=== PATIENT | male | born 1950 | race African-American/Black ===

== ENCOUNTER 2017-08-31 07:58 | Inpatient (IN) | payer MEDICARE ==
[~2017-08-31] VITALS: Ht 172.7 cm; Wt 62.3 kg
--- NOTE | ~2017-08-31 | HEMODYNAMI ---
PATIENT:MARK HAIRSTON MEDICAL RECORD: [id number] : 54 LOCATION:[address] [id number] ADMISSION DATE: 08/31/17 Generatedon:09/01/201711:05 Patient name: MARK HAIRSTON Patient #: [id number] SSN: : 1950 Date of study: 09/01/2017 Page: Of Hemodynamic Procedure Report Patient Data Patient Demographics Procedure consent was obtained First Name: MARK Gender: Male Last Name: YOVANNY : 1950 Middle Initial: RAY Age: 67 year(s) Patient #: [id number] Race: Black Additional ID: [id number] Contact details [address]: [address] [place] [address] 7 State: [place] City: [place] Zip code: [address] Admission Admission Data Admission Date: 08/31/2017 Admission Time: 9:46 Room #: D.2124 Lab Results Lab Result Date: 09/01/2017 Lab Result Time: 0:00 Biochemistry Name Units Result Min Max BUN mg/dl 18 --(---*)-- 7 18 Creatinine mg/dl 1.5 --(----)-* 0.6 1.3 CBC Name Units Result Min Max Hemoglobin g/dl 15.1 --(-*--)-- 13.5 17.5 Procedure Procedure Types Cath Procedure Diagnostic Procedure LHC LH w/Coronaries Miscellaneous Procedures Moderate Sedation up to 15 minutes Peripheral Cath Diagnostic Procedure Cath Peripheral Yqaxh-Rymqvgd-Muf-Off Procedure Description Procedure Date Procedure Date: 09/01/2017 Procedure Start Time: 10:46 Procedure End Time: 11:01 Procedure Staff Name Function Odilia Powell RT Scrub Paul Youngblood RN Mail Order Biller Ash Quiros MD Performing Physician Nathalia Hernandez RT Monitor Bonita Guerrier RN Nurse Procedure Data Cath Procedure Fluoroscopy Diagnostic fluoroscopy Total fluoroscopy Time: 2.1 time: 2.1 min min Diagnostic fluoroscopy Total fluoroscopy dose: 537 dose: 537 mGy mGy Contrast Material Contrast Material Type Amount (ml) Isovue 300 103 Entry Location Entry Primary Successful Side Size Upsize Upsize Entry Closure Succes sful Closure Location (Fr) 1 (Fr) 2 (Fr) Remarks Device Remarks Femoral Right 5 Fr Exoseal artery Estimated blood loss: 10 ml Diagnostic catheters Device Type Used For End Catheter Placement MULTIPACK Pigtail 5 Fr Procedure catheter MULTIPACK JL 4.0 5Fr Procedure catheter MULTIPACK 3DRC 5Fr Procedure catheter Procedure Complications No complications Procedure Medications Medication Administration Route Dosage Plavix P.O. 75 mg Lidocaine 2% added to field 20 Heparin Flush Bag added to field 2 bags (1000units/500ml NS) 0.9% NaCl I.V. 100 ml/hr Oxygen NC 2 l/min Fentanyl 50 mcg Versed I.V. 1 mg Versed I.V. 1 mg Fentanyl 50 mcg Hemodynamics Rest HGB: 15.1 (g/dl) Heart Rate: 80 (bpm) Pressure Samples Time Site Value (mmHg) Purpose Heart Use Rate(bpm) 10:51 AO 148/11(63) Snapshot 58 Snapshots Pre Cath Intra NCS Post Cath Vital Signs Time Heart Resp SPO2 etCO2 NIBP (mmHg) Rhythm Pain Sedation Rate (ipm) (%) (mmHg) Status Level (bpm) 10:39:52 67 17 99 176/122(158) NSR 0 (11) 10(A) , No pain 10:44:09 71 16 99 163/121(144) NSR 0 (11) 10(A) , No pain 10:48:22 61 20 95 26.9 161/103(124) NSR 0 (11) 9(A) , No pain 10:52:36 64 15 96 22.4 160/119(135) NSR 0 (11) 9(A) , No pain 10:56:50 78 14 99 0 147/103(126) NSR 0 (11) 10(A) , No pain 11:00:58 75 12 98 0 148/101(123) NSR 0 (11) 10(A) , No pain Medications Time Medication Route Dose Verified Delivered Reason Notes Effectiveness by by 10:32:50 Plavix P.O. 75 mg Ash [place] for Ishaan Guerrier RN antiplatelet therapy 10:32:58 Lidocaine 2% added 20ml Ash Aleman for local to vial Ishaan Quiros MD anesthetic field 10:33:08 Heparin Flush added 2 bags Ash Aleman used for Bag to Ishaan Quiros MD procedure (1000units/500ml field NS) 10:33:23 0.9% NaCl I.V. 100ml/hr Ash [place] used for Ishaan Guerrier RN procedure 10:33:30 Oxygen NC 2 l/min Ash [place] Per Ishaan Guerrier RN physician 10:45:41 Fentanyl 50 mcg [place] for sedation Ishaan Guerrier RN 10:45:50 Versed I.V. 1 mg Ash [place] for sedation Ishaan Guerrier RN 10:48:01 Versed I.V. 1 mg Ash [place] for sedation Ishaan Guerrier RN 10:48:07 Fentanyl 50 mcg [place] for sedation Ishaan Guerrier RN Procedure Log Time Note 10:24:13 Diagnostic Cath status Elective 10:24:15 Paul Youngblood RN sent for patient. Start room use. 10:24:17 Time tracking: Regular hours 10:24:23 Plan of Care:Hemodynamics will remain stable., Cardiac rhythm will remain stable., Comfort level will be maintained., Respiratory function will remain adequate., Patient/ family verbilizes understanding of procedure., Procedure tolerated without complication., Recovers from procedure without complications.. 10:24:51 Patient received from Med II to CCL 2 Alert and oriented. Tansferred to table in Supine position. 10:27:56 Warm blankets applied, and lindsay hugger turned on for patient comfort. 10:27:57 Correct patient and procedure confirmed by team. 10:27:59 Signed procedure consent form obtained from patient. 10:28:00 ECG and BP/O2 sat monitors applied to patient. 10:28:08 H&P Date Dictated: 08/31/2017 Within 30 days and on chart.. 10:28:10 Pre-procedure instructions explained to patient. 10:28:12 Family in patients room. 10:28:14 Patient NPO since Midnight. 10:32:50 Plavix 75 mg P.O. was administered by Bonita Guerrier RN; for antiplatelet therapy; 10:32:58 Lidocaine 2% 20ml vial added to field was administered by Ash Quiros MD; for local anesthetic; 10:33:08 Heparin Flush Bag (1000units/500ml NS) 2 bags added to field was administered by Ash Quiros MD; used for procedure; 10:33:23 0.9% NaCl 100ml/hr I.V. was administered by Bonita Guerrier RN; used for procedure; 10:33:30 Oxygen 2 l/min NC was administered by Bonita Guerrier RN; Per physician; 10:38:45 Vital chart was started 10:38:57 Is the patient allergic to Iodine/contrast media? No. 10:38:58 Is patient on blood thinner?Yes 10:39:01 ACC The patient was administered the following blood thiners within the last 24 hours: ACCPlavix 10:39:03 If diabetic: On Metformin? No 10:39:07 Snore? Yes 10:39:08 Sleep apnea? No 10:39:12 Airway obstruction? No ? 10:39:17 Baseline sample Acquired. 10:39:21 Rhythm: sinus rhythm 10:39:23 Full Disclosure recording started 10:39:39 IV patent on arrival in right wrist with 0.9% NaCl at [facility]. 10:40:18 Lab Result : Hemoglobin 15.1 g/dl 10:40:18 Lab Result : Creatinine 1.5 mg/dl 10:40:18 Lab Result : BUN 18 mg/dl 10:40:23 Lab results completed and on chart. 10:40:27 Right groin area was prepped with chlora-prep and draped in sterile fashion 10:40:28 Sharps counted by scrub and verified by R.N. 10:40:28 Alarms reviewed by R. N. 10:40:29 Physician paged 10:45:39 --------ALL STOP TIME OUT------ 10:45:39 Physician arrived 10:45:41 Final Timeout: patient, procedure, and site verified with staff and physician. All members of the team are in agreement. 10:45:41 Fentanyl 50 mcg was administered by Bonita Guerrier RN; for sedation; 10:45:43 Right groin site verified by team. 10:45:47 Physical assessment completed. ASA score P 2 - A patient with mild systemic disease as per Ash Quiros MD. 10:45:50 Versed 1 mg I.V. was administered by Bonita Guerrier RN; for sedation; 10:45:53 Sedation plan: IV Moderate Sedation Medication:Versed, Fentanyl 10:46:09 Procedure started. 10:46:17 Local anesthetic to right femoral artery with Lidocaine 2% by Ash Quiros MD.INITIAL ACCESS ONLY 10:46:27 A 5 Fr sheath was inserted into the Right Femoral artery 10:46:39 Use device set Femoral Dx 10:46:41 Bag Decanter (2002S) opened to sterile field. 10:46:41 ACIST Syringe (54132) opened to sterile field. 10:46:42 SHEATH 5FR [place] (RXH649) opened to sterile field. 10:46:42 Medline Cath Pack ([id number]) opened to sterile field. 10:46:43 DIAGNOSTIC WIRE .035 260cm J wire (739063) opened to sterile field. 10:46:44 ACIST Hand Control (23193) opened to sterile field. 10:46:45 DIAGNOSTIC Multipack 5Fr catheter set ([id number]) opened to sterile field. 10:46:45 ACIST Manifold (08032) opened to sterile field. 10:46:46 PERCUTANEOUS ENTRY 19GA needle opened to sterile field. 10:46:46 Tegaderm 4 x 4 (1626W) opened to sterile field. 10:46:47 EXOSEAL 5Fr (EX500) opened to sterile field. 10:46:47 MICROPUNCTURE 4FR OnShift ([id number]) opened to sterile field. 10:48:01 Versed 1 mg I.V. was administered by Bonita Guerrier RN; for sedation; 10:48:07 Fentanyl 50 mcg was administered by Bonita Guerrier RN; for sedation; 10:50:09 A MULTIPACK Pigtail 5 Fr catheter was advanced over the wire and used for Procedure. 10:50:10 LV angiography performed. 10:51:41 EF : 35 % 10:52:01 Abdominal Aortagram was performed. 10:52:05 Left leg runoff performed. 10:52:06 Right leg runoff performed. 10:53:11 Catheter removed. 10:53:33 A MULTIPACK JL 4.0 5Fr catheter was advanced over the wire and used for Procedure. 10:53:40 LCA angiography performed. 10:55:58 Catheter removed. 10:56:21 A MULTIPACK 3DRC 5Fr catheter was advanced over the wire and used for Procedure. 10:58:12 RCA angiography performed. 10:58:14 Catheter removed. 10:59:01 EXOSEAL 5Fr (EX500) opened to sterile field. 10:59:09 Sheath removed intact; hemostasis achieved with Exoseal to the Right Femoral artery. 10:59:11 Procedure ended.(Physican Out) 10:59:51 Fluoroscopy time 02.10 minutes. 10:59:57 Fluoroscopy dose: 537 mGy 10:59:57 Flurop Dose total: 537 11:00:01 Contrast amount:Isovue 300 103ml. 11:00:02 Sharps counted by scrub and verified by R.N. 11:00:04 Insertion/operative site no bleeding no hematoma. 11:00:10 Post-op/insertion site Right Femoral artery dressed using a 4 x 4 and Tegaderm. 11:00:15 Post right femoral artery:stable 11:00:18 Post Procedure Pulses reassessed and unchanged 11:00:23 Post-procedure physical assessment completed. ASA score P 3 - A patient with severe systemic disease as per Ash Quiros MD. 11:00:45 Post procedure rhythm: sinus rhythm 11:00:48 Estimated blood loss: 10 ml 11:00:51 Post procedure instruction explained to patient.Patient verbalizes understanding. 11:00:53 Patient needs reinforcement of post procedure teaching. 11:01:05 Procedure type changed to Cath procedure, Diagnostic procedure, LHC, LHC w/Coronaries, Miscellaneous Procedures, Moderate Sedation up to 15 minutes, Peripheral Cath Diagnostic Procedure, Cath Peripheral, Qyyia-Rmpwkts-Tzz-Off 11:01:07 Procedure and supply charges have been captured, reviewed, submitted and are correct. 11:01:12 Procedure Complication : No complications 11:01:14 Vital chart was stopped 11:01:15 See physician's report for complete and final results. 11:01:18 Report given to [facility]. 11:01:24 Patient transfered to [facility] with Bed. 11:01:26 Full Disclosure recording stopped 11::26 Procedure ended. 11:01:30 End room use (Document Last) Device Usage Item Name Manufacture Quantity Catalog Hospital Part Current Minimal Lot# / Number Charge Number Stock Stock Serial# Code ACIST Syringe Acist 1 42979 748285 997462 288607 20 (74152) Kids Calendar Bag Decanter Microtek 1 539695 80607 347575 5 () Medical Inc. Medline Cath Cardinal 1 [id number] 433140 34785 799785 5 Pack Health ([id number]) SHEATH 5FR Terumo 1 [id number] 243312 757853 747441 40 [place] (JPX147) DIAGNOSTIC [place] 1 272709 014364 510983 773628 30 WIRE .035 260cm J wire (226404) ACIST Hand Acist 1 95971 229616 208635 909631 5 Control Medical (68249) Systems Inc ACIST Acist 1 50143 294024 022580 986620 5 Manifold Medical (02811) Systems Inc DIAGNOSTIC Cardinal 1 [id number] 621497 58242 962963 30 Multipack 5Fr Health catheter set ([id number]) Tegaderm 4 x 3M 1 1626W 430209 512518 367455 5 4 (1626W) PERCUTANEOUS Stockleap 1 V68101 928734 413107 5 ENTRY 19GA needle MICROPUNCTURE OnShift Medical 1 [id number] 634655 616834 282376 5 4FR Cook ([id number]) EXOSEAL 5Fr Cardinal 2 EX500 807113 661275 606289 10 (EX500) Health MULTIPACK Cardinal 1 687653 5 Pigtail 5 Fr Health catheter MULTIPACK JL Cardinal 1 799861 5 4.0 5Fr Health catheter MULTIPACK Cardinal 1 233310 5 3DRC 5Fr Health catheter Signature Audit [place] Stage Time Signature Unsigned Intra-Procedure 09/01/2017 Nathalia Hernandez 11:01:56 AM RT(R) Signatures Monitor : Nathalia Hernandez Signature : RT Date : Time : [facility] [address] [place], [place] [address]
[2017-08-31 08:18] LABS: BASOPHILS 0.4 % (0-2); EOSINOPHILS 1.9 % (0-7); HEMATOCRIT 41.5 % (42.0-54.0); HEMOGLOBIN 14.5 g/dL (13.5-17.5); LYMPHOCYTES 24.6 % (15-50); MCH 30.2 pg (26.0-34.0); MCHC 34.9 g/dL (31.0-37.0); MCV 86.5 fL (80.0-100.0); MEAN PLATELET VOLUME 10.1 fL (7.4-10.4); MONOCYTES 5.9 % (2-11); NEUTROPHILS 67.2 % (40-80); PLATELET COUNT 177 10x3/uL (130-400); RDW 13.8 % (11.5-14.5); WBC 5.4 10x3/uL (4.8-10.8)
[2017-08-31 08:32] LABS: ALBUMIN 3.3 g/dL (3.4-5.0); ALKALINE PHOSPHATASE 72 U/L (46-116); ALT (SGPT) 13 U/L (10-68); BILIRUBIN - TOTAL 0.55 mg/dL (0.2-1.3); CALC OSMOLALITY 281 mosm/kg (275-300); CALCIUM 8.7 mg/dL (8.5-10.1); CARBON DIOXIDE 25.6 mmol/L (21.0-32.0); CHLORIDE - SERUM 108 mmol/L (98-107); CREATININE - SERUM 1.2 mg/dL (0.6-1.3); GLUCOSE 103 mg/dL (74-106); POTASSIUM - SERUM 3.9 mmol/L (3.5-5.1); PROTEIN - SERUM 7.3 g/dL (6.4-8.2); SODIUM 141 mmol/L (136-145); UREA NITROGEN 16 mg/dL (7-18); eGFR NON AFRICAN AMERICAN 64 mL/min (90-120)
[2017-08-31 08:59] LABS: CHOL - HDL RATIO 2.9 ratio (2.3-4.9); CHOLESTEROL, TOTAL 152 mg/dL (0-200); CKMB 2.8 U/L (0.0-3.6); CREATINE KINASE 84 UL (21-232); HDL CHOLESTEROL 52 mg/dL (32-96); LDL CHOLESTEROL 92 mg/dL (0-100); LDL-HDL RATIO 1.8 ratio (1.5-3.5); TRIGLYCERIDE 41 mg/dL (30-200)
[2017-08-31 09:05] LABS: TROPONIN-I 0.118 ng/mL (0.000-0.060)
--- NOTE | 2017-08-31 11:33 | NUR ---
RECIVED FROM ER PER WC, TO ROOM 2124. ADMIT ASSESSMENT PER RN
--- NOTE | 2017-08-31 12:15 | CN ---
PATIENT NAME:MARK HAIRSTON MEDICAL RECORD: [id number] : 54 LOCATION:. D.2124 ADMIT DATE: 08/31/17 ACCOUNT: [id number] CONSULTING PHYSICIAN: SYDNIE JARAMILLO MD REFERRING PHYSICIAN: FORREST TRAORE MD DATE OF CONSULTATION: 08/31/2017 CARDIOLOGY CONSULTATION DATE OF SERVICE: 08/31/2017 DIAGNOSES: 1. Non-Q-wave myocardial infarction, elevated troponin. 2. Shortness of breath, dyspnea on exertion. 3. Hypertension. HISTORY OF PRESENT ILLNESS: This is a gentleman with a past history of hypertension, on metoprolol, who was short of breath, presented to the Emergency Room with this. He actually states that he just came to the hospital for a checkup. His troponin is positive. His EKG has left ventricular hypertrophy with some lateral changes as well. He denies any overt chest pain or chest discomfort. Denies any cardiac history. PHYSICAL EXAMINATION: GENERAL APPEARANCE: Well-nourished, well-developed, appears stated age. Level of distress, comfortable. PSYCHIATRIC: Mental status, alert, normal affect. Orientation, oriented to time, place and person. EYES: Lids and conjunctiva, noninjected. No discharge, no pallor. ENT: Lips, teeth, gums, normal dentition. Oropharynx, no cyanosis, no pallor. NECK: Carotid arteries, bilateral normal upstroke, no bruits, no thrills. JUGULAR VEINS: No jugular venous pressure or distention. CERVICAL LYMPH NODES: Nontender, nonenlarged. THYROID: Not enlarged. Nontender. No nodules. LUNGS: Respiratory effort, unlabored. CHEST: Normal curvature. No thoracic deformity. No chest wall tenderness. Percussion, resonant. Auscultation, clear. No wheezes, no rales, no rhonchi. CARDIOVASCULAR: Precordial exam, nondisplaced. No heaves or pericardial thrills. Rate and rhythm, regular. Heart sounds, normal S1, normal S2. No S3, no gallop, no rub. Systolic murmur, not heard. Diastolic murmur, not heard. EXTREMITIES: No cyanosis, no edema. Peripheral pulses, full and equal in all extremities, except as noted. No bruits appreciated. ABDOMEN: Soft, nondistended. Normal aorta. No bruit. Nontender. No masses. Liver, nontender, no hepatomegaly. Spleen, nontender, no splenomegaly. MUSCULOSKELETAL: No joint tenderness. No joint swelling. No erythema. NEUROLOGICAL: Normal gait, normal strength, normal tone. SKIN: Warm and dry. REVIEW OF SYSTEMS: The patient reports easy bruising but reports no swollen glands. The patient reports no fever, no night sweats, no significant weight gain, no significant weight loss. No significant exercise tolerance. The patient reports no dry eyes, no irritation, no vision change. Patient reports no difficulty hearing and no ear pain. Patient reports no frequent nose bleeds or nose and sinus problems. Patient reports on arm pain on exertion. No shortness of breath while lying down. No history of heart murmur. Patient CONSULT REPORT [id number] MARK HAIRSTON reports no cough, no wheezing or coughing up blood. Patient reports no abdominal pain, no vomiting. Normal appetite. No diarrhea and not vomiting blood. No nausea and no constipation. Patient reports no incontinence. No difficulty urinating. No hematuria. No increased frequency. Patient reports no muscle aches. No weakness, no arthralgias, no back pain. No swelling of the extremities. Patient reports no abnormal mole, no jaundice, no rashes. Reports no loss of consciousness. No weakness and no numbness. No seizures, dizziness, or headaches. The patient reports no depression, no sleep disturbance, feeling safe in a relationship and no alcohol abuse. Patient reports on fatigue. Reports no runny nose or sinus pressure. No itching, no hives, and no frequent sneezing. OVERALL IMPRESSION: Shortness of breath, elevated troponin. We will get an echocardiogram for his overall LV function. Proceed with coronary angiography in the a.m. Load him with aspirin and Plavix at this time. Continue his metoprolol as beta blockade. He has been given IV Lasix, we will continue that at this time as well. TRANSINT:[id number] Voice Confirmation ID: [id number] DOCUMENT ID: [id number] SYDNIE JARAMILLO MD at 1215 CC: [id number] DICTATION DATE: 08/31/17 1130 OPEN HEARTH LABORER: 08/31/17 1143 [facility] [place] [id number] [place] [address]
[2017-08-31] MEDS ORDERED: DETROL LA4 MG PO (14:20)
[2017-08-31] MEDS ORDERED: COZAAR50 MG PO (14:21)
[2017-08-31] MEDS ORDERED: BAYER CHEWABLE81 MG PO (14:22)
[2017-08-31 15:10] VITALS: BP 157/104; BMI 21.3
--- NOTE | 2017-08-31 15:18 | NUR ---
ASSESSMENT COMPLETE AT THIS TIME NAD NOTED PT DENIES ANY NEEDS OR DISCOMFORT
[2017-08-31 15:37] LABS: CKMB 2.4 U/L (0.0-3.6); CREATINE KINASE 80 UL (21-232)
[2017-08-31 15:40] VITALS: BP 148/92
[2017-08-31 15:41] LABS: TROPONIN-I 0.102 ng/mL (0.000-0.060)
--- NOTE | 2017-08-31 17:16 | NUR ---
WITHOUT CHANGES OR DISTRESS NOTED AT THIS TIME. DENIES NEEDS.
--- NOTE | 2017-08-31 19:40 | NUR ---
PT RESTING IN BED. HOB 45. PT 2L O2 NC. PT DENIES ANY NEEDS. AT THIS TIME. NO S/S OF DISTRESS. BED LOW AND CALL LIGHT IN REACH.WILL CPOC
[2017-08-31 20:41] LABS: CKMB 1.9 U/L (0.0-3.6); CREATINE KINASE 75 UL (21-232)
[2017-08-31 20:50] LABS: TROPONIN-I 0.124 ng/mL (0.000-0.060)
[2017-08-31 21:26] VITALS: BP 175/117
[2017-09-01] VITALS: BP 176/111
--- NOTE | 2017-09-01 00:20 | NUR ---
PT RESTING IN BED. VERBALIZED UNDERSTANDING OF HEART CATH IN THE MORNING. REEDUCATED PT IN AREAS HE NEEDED. PT REPOSITONED IN THE BED. PT DENIES ANY NEEDS. NO S/S OF DISTRESS. BED LOW AND CALL LIGHT IN REACH. WILL CPOC
--- NOTE | 2017-09-01 03:20 | NUR ---
CORPORATE SECURITY MANAGER GIVING PT A BATH. PT IS UP WITH ASSIST DUE TO UNSTEADY GAIT. STAND BY ASSIST AT TIMES. PT NOW CLEAN AND DRY. BED CHANGED . 2L OF O2 NC. PT REPOSITIONED IN BED. DENIES ANY NEEDS. WILL CPOC
[2017-09-01 03:25] LABS: BASOPHILS 0.1 % (0-2); EOSINOPHILS 2.2 % (0-7); HEMATOCRIT 43.9 % (42.0-54.0); HEMOGLOBIN 15.1 g/dL (13.5-17.5); IMMATURE GRANULOCYTES 0.1 % (0-5); LYMPHOCYTES 26.4 % (15-50); MCHC 34.4 g/dL (31.0-37.0); MCV 87.1 fL (80.0-100.0); MEAN PLATELET VOLUME 10.3 fL (7.4-10.4); MONOCYTES 6.9 % (2-11); NEUTROPHILS 64.3 % (40-80); PLATELET COUNT 185 10x3/uL (130-400); RBC 5.04 10x6/uL (4.20-6.10); WBC 6.9 10x3/uL (4.8-10.8)
[2017-09-01 03:52] LABS: ALBUMIN 3.4 g/dL (3.4-5.0); ALKALINE PHOSPHATASE 72 U/L (46-116); ALT (SGPT) 12 U/L (10-68); BILIRUBIN - TOTAL 0.56 mg/dL (0.2-1.3); CALC OSMOLALITY 286 mosm/kg (275-300); CALCIUM 8.9 mg/dL (8.5-10.1); CHLORIDE - SERUM 106 mmol/L (98-107); CKMB 2.4 U/L (0.0-3.6); CREATINE KINASE 81 UL (21-232); CREATININE - SERUM 1.5 mg/dL (0.6-1.3); GLUCOSE 91 mg/dL (74-106); POTASSIUM - SERUM 4.1 mmol/L (3.5-5.1); PROTEIN - SERUM 7.7 g/dL (6.4-8.2); SODIUM 143 mmol/L (136-145); UREA NITROGEN 18 mg/dL (7-18); eGFR NON AFRICAN AMERICAN 50 mL/min (90-120)
[2017-09-01 03:58] LABS: CARBON DIOXIDE 32.2 mmol/L (21.0-32.0); TROPONIN-I 0.111 ng/mL (0.000-0.060)
[2017-09-01 06:27] VITALS: BP 170/118
--- NOTE | 2017-09-01 07:30 | NUR ---
PATIENT ON EDGE OF BED THIS AM. PATIENT SPEECH IS SLURRED, PATIENT SAYING "HELP ME REPEATEDLY" WHEN ASKED WHAT HE NEEDED HELP WITH PATIENT STATES "BATHROOM" ASSISTED PATIENT TO RESTROOM. PATIENT GATE NOTED TO BE VERY UNSTEADY AND LEFT SIDED WEAKNESS NOTED AT THIS TIME. PATIENT THEN ASKED "WHERE ARE WE, AM I HOME?" ATTEMTED TO REORIENT PATIENT TO PLACE AND TOLD PATIENT HE IS IN THE HOSPITAL. PATIENT STATES "NO I AM NOT" PATIENT WOULD NOT VOID AND STATED "PUT ME BACK IN BED"
[2017-09-01 08:05] VITALS: BP 139/80
--- NOTE | 2017-09-01 11:25 | NUR ---
PATIENT RETURNS FROM CHIP MACHINE OPERATOR AT THIS TIME. BP153/106 T97.8 R14 O298% ON 2L PER NASAL CANNULA. PATIENT IS RESTING IN BED AT THIS TIME. CATH SITE SOFT, NO DRAINAGE OR PROBLEMS NOTED AT THIS TIME.
[2017-09-01 11:34] VITALS: BP 153/106
[2017-09-01 12:05] LABS: UDS - AMPHET NEGATIVE QUAL (NEGATIVE); UDS - BARB NEGATIVE QUAL (NEGATIVE); UDS - BENZO NEGATIVE QUAL (NEGATIVE); UDS - COCAINE POSITIVE QUAL (NEGATIVE); UDS - OPIATE NEGATIVE QUAL (NEGATIVE); UDS - PCP NEGATIVE QUAL (NEGATIVE); UDS - THC POSITIVE QUAL (NEGATIVE)
--- NOTE | 2017-09-01 12:33 | NUR ---
RESP UL ON . VS WNL. IV PATENT. FAMILY AT BS. WILL CONT. PLAN OF CARE.
[2017-09-01 13:53] VITALS: Ht 172.7 cm; Wt 62.3 kg
[2017-09-01 15:43] VITALS: BP 166/109
--- NOTE | 2017-09-01 16:55 | NUR ---
Rehab Note- Acute Rehab Prescreen order received. Will visit with the patient about possible acute inpatient rehab stay. Heart cath today. Will follow at this time. Thank you for this referral! Yessica Aranda RN Clinical Liaison, [facility] Rehab
--- NOTE | 2017-09-01 18:15 | NUR ---
PATIENT SITTING UP IN BED WATCHING TV AT THIS TIME. NO PROBLEMS NOTED. PATIENT DENIES ANY NEEDS OR PAIN. NO SIGNS OR SYMPTOMS OF DISTRESS NOTED.
[2017-09-01 21:03] VITALS: BP 162/111
--- NOTE | 2017-09-02 01:40 | NUR ---
SAW BOSS INFORMED ME OF A RUN OF 24 V TACH. PT IS ASLEEP, AROUSES TO VERBAL STIMULI. NO S/S OF DISTRESS. DENIES ANY NEEDS. BED LOW AND CALL LIGHT IN REACH. WILL CPOC
[2017-09-02 05:40] VITALS: BP 153/101
[2017-09-02 06:22] LABS: BASOPHILS 0.2 % (0-2); EOSINOPHILS 1.5 % (0-7); HEMATOCRIT 44.1 % (42.0-54.0); HEMOGLOBIN 13.8 g/dL (13.5-17.5); IMMATURE GRANULOCYTES 0.5 % (0-5); LYMPHOCYTES 23.3 % (15-50); MCH 27.7 pg (26.0-34.0); MCHC 31.3 g/dL (31.0-37.0); MCV 88.4 fL (80.0-100.0); MEAN PLATELET VOLUME 11.6 fL (7.4-10.4); MONOCYTES 5.3 % (2-11); NEUTROPHILS 69.2 % (40-80); PLATELET COUNT 210 10x3/uL (130-400); RBC 4.99 10x6/uL (4.20-6.10); RDW 14.1 % (11.5-14.5); WBC 6.6 10x3/uL (4.8-10.8)
[2017-09-02 06:32] LABS: ALBUMIN 3.3 g/dL (3.4-5.0); ANION GAP 13.5 mmol/L (8-16); BILIRUBIN - TOTAL 0.55 mg/dL (0.2-1.3); CALCIUM 8.9 mg/dL (8.5-10.1); CARBON DIOXIDE 27.5 mmol/L (21.0-32.0); CREATININE - SERUM 1.4 mg/dL (0.6-1.3); PROTEIN - SERUM 6.8 g/dL (6.4-8.2)
--- NOTE | 2017-09-02 07:15 | NUR ---
RECIEVED REPORT ON PATIENT, PATIENT IS ALERT BUT CONFUSED AT TIMES TO SITUATION. PATIENT HAS A L FA IV THAT IS SL AT THIS TIME. PATIENT IS REQUESTING TO TAKE A SHOWER, WILL NOTIFIY COOKER CLEANER. PATIENT DENIES ANY OTHER NEEDS AT THIS TIME. BED LOW AND LOCKED. CALL LIGHT IN REACH. CPOC
[2017-09-02 08:34] VITALS: BP 185/119
--- NOTE | 2017-09-02 09:30 | NUR ---
MORNING MEDICATIONS GIVEN. ASSESSMENT DONE, DAUGHTER AT BEDSIDE, CPOC
[2017-09-02 12:25] VITALS: BP 154/111
--- NOTE | 2017-09-02 12:30 | NUR ---
PATIENT SITTING UP IN CHAIR, EATING LUNCH. FAMIYL AT BEDSIDE. PATIENT DENIES ANY NEEDS. CPOC
--- NOTE | 2017-09-02 12:44 | NUR ---
Patient Name: MARK HAIRSTON Admission Status: ER Accout number: [id number] Admission Date: 08-31-2017 : 1950 Admission Diagnosis: Attending: FORREST FRANCOIS Current LOS: 2 Anticipated DC Date: 09-02-2017 Planned Disposition: Shelter Facility Primary Insurance: MEDICARE A & B PLANNED EXTERNAL PROVIDER: [facility], MEDICARE REHAB BED Discharge Planning Comments: * Is the patient Alert and Oriented? Yes 0 * How many steps to enter\exit or inside your home? NONE 0 * PCP UNKNOWN 0 * Pharmacy UNKNOWN 0 * Preadmission Environment Home with Family 0 * ADLs Independent 0 * Equipment None 0 * Other Equipment NO MEDICAL EQUIPMENT PROVIDER PREFERENCE 0 * List name and contact numbers for known caregivers / representatives who currently or will assist patient after discharge: AUDREY FOSTER, SISTER, 0 * Community resources currently utilized None 0 * Please name any agencies selected above. none 0 * Additional services required to return to the preadmission environment? No 0 * Can the patient safely return to the preadmission environment? Yes 0 * Has this patient been hospitalized within the prior 30 days at any hospital? No 0 LATE ENTRY FROM 09-01-17: CM RECEIVED REQUEST FROM PT'S FAMILY TO MEET WITH THEM IN PT'S ROOM. CM MET WITH PT AND TWO SISTERS, BHAVANI AND SALVATORE, IN ROOM TO DISCUSS DISCHARGE PLANNING AND NEEDS. PT REPORTS LIVING AT HOME INDEPENDENTLY WITH FRIENDS. PT HAS NO MEDICAL EQUIPMENT AND NO OUTSIDE SERVICES ASSISTING IN THE HOME. CM DISCUSSED AVAILABILITY OF HOME HEALTH, REHAB SERVICES AND MEDICAL EQUIPMENT. PT DENIES DISCHARGE NEEDS, REPORTS FAMILY WILL PICK HIM UP FOR DISCHARGE HOME. PT REPORTED PLAN TO DISCHARGE BACK TO HOME AT [address] [place] [address] IN [place], [place], WITH FRIEND, NINFA JEAN. PT WAS TAKEN TO PROCEDURE. PT'S SISTER, SALVATORE HAIRSTON, WHO REPORTS PT TO USE ALCOHOL AND CRACK COCAINE. FAMILY BROUGHT PT TO [facility] FROM OUT OF STATE TO HELP HIM. PT HAS BEEN LIVING WITH A PERSON IN [place] THAT PROVIDES PT ACCESS TO DRUGS. FAMILY WOULD LIKE PT TO ENTER GROUP HOME FOR FPC CARE IF PT WILL AGREE. 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 FAMILY REPORTED UNDERSTANDING. CM RECEIVED ORDER FOR INPATIENT REHAB PRESCREEN; CM RETURNED TO PT'S ROOM LATE IN AFTERNOON 12-17 AND SPOKE TO PT IN ROOM REGARDING DISCHARGE PLAN. PT WILL GO TO REHAB AT [facility] IF THE DOCTOR FEELS HE NEEDS IT; PT REPORTS HE HAS SPOKEN TO HIS FAMILY AND HAS DECIDED THAT HE WOULD LIKE MACHINE OPERATOR CARE IN [facility]. CHOICE SIGNED. CM FAXED REFERRAL TO [facility] VIA ELIJAH, CLINICAL COORDINATOR, . IMPORTANT MESSAGE FROM MEDICARE PROVIDED AND EXPLAINED. CM WAITING ADMISSION DETERMINATION FROM [facility] FOR REHAB OR FPC CARE. Software Designer: Jerald Law
--- NOTE | 2017-09-02 14:00 | NUR ---
PATIENT SITTING IN CHAIR. FAMILY AT BEDSIDE. PATIENT DENIES ANY NEEDS. SPOKE WITH DAVIN SMITH REGARDING PATIENT BP BEING ELEVATED. STATED SHE "WOULD LOOK OVER HIS STUFF" CPOC
--- NOTE | 2017-09-02 14:39 | NUR ---
Visited with the patient and his family today. He meets criteria for IRF and will be accepted today. The CM has been made aware. Rosana Garvin RN Clinical Liaison, rehab
[2017-09-02] MEDS ORDERED: PLAVIX75 MG PO (15:16)
[2017-09-02] MEDS ORDERED: PRAVACHOL20 MG PO (15:17)
[2017-09-02] MEDS ORDERED: METOPROLOL TART50 MG PO (15:17)
[2017-09-02] MEDS ORDERED: LASIX20 MG PO (15:20)
--- NOTE | 2017-09-02 15:21 | NUR ---
PATIENT SITTING UP IN CHAIR. DENIES ANY NEEDS. CPOC
[2017-09-02 16:35] VITALS: BP 153/109
--- NOTE | 2017-09-02 16:50 | NUR ---
Rehab Note- To be admitted to [facility] Acute Rehab today. Thank you for this referral! Yessica Aranda RN Clinical Liaison, [facility] Rehab
--- NOTE | 2017-09-02 17:25 | NUR ---
Patient Name: MARK HAIRSTON Encounter No: [id number] : 1950 Primary Insurance: MEDICARE A & B Anticipated DC Date: 09-02-2017 Planned Disposition: Inpatient Rehab External Planned Provider: [facility] DCP follow-up note: CM SPOKE TO [facility], THEY PLAN TO ACCEPT PT TODAY FOR REHAB. PT NOTIFIED, IN AGREEMENT WITH DISCHARGE TO INPATIENT REHAB. BEDSIDE NURSE NOTIFIED BY [facility]. CM NOTIFIED ELIJAH OF [facility] WHO WILL FOLLOW UP WITH REHAB AND PT LATER REGARDING ADMISSION TO INTERMEDIATE CARE AT [facility]. [facility] TO CONTACT MED 2 NURSE WITH ROOM NUMBER WHEN READY TO ACCEPT PT AND NURSE REPORT. Jerald Law, CASE MANAGEMENT
--- NOTE | 2017-09-02 17:30 | NUR ---
PATIENT EATING DINNER. DENIES ANY NEEDS. CPOC
--- NOTE | 2017-09-02 18:20 | NUR ---
ROUNDS MADE, INFORMED PATIENT WAS ABOUT TO LEAVE. DENIES ANY NEEDS. CPOC
--- NOTE | 2017-09-02 20:20 | NUR ---
PT NIGHT TIME MEDS GIVEN. DISCHARGE PAPERS SIGNED, DENIES ANY QUESTIONS OR CONCERNS. PT HAS IV IN LEFT FOREARM S/L. LEAVING IN IV FOR INPATIENT REHAB. REPORT GIVEN TO DERREK IN REHAB. PT TRANSPORTING VIA WHEEL CHAIR TO ROOM 1118- B. HEART MONITOR REMOVED AND RETURNED, I DID NOT SEE ORDERS TO KEEP ON FOR REHAB. ALL BELONGINGS PACKED. PT DENIES ANY NEEDS, NO S/S OF DISTRESS. WILL CPOC
--- NOTE | 2017-09-15 15:46 | OP ---
PATIENT NAME: MARK HAIRSTON MEDICAL RECORD: [id number] :54 LOCATION:D.M2 D.2124 ADMISSION DATE:08/31/17 SURGEON: SYDNIE JARAMILLO MD DATE OF OPERATION: 09/01/2017 PROCEDURES: 1. Left heart catheterization. 2. Selective coronary angiography. 3. Left ventriculogram. 4. Aortofemoral runoff. 5. Abdominal aortography. INDICATION: Angina, coronary artery disease, claudication, and peripheral vascular disease. PROCEDURE IN DETAIL: After informed consent was obtained and after detailed explanation of risks, benefits as well as alternative therapies, the patient elected to proceed with angiogram and angioplasty. The right femoral area was prepped and draped in normal sterile fashion. The right femoral artery was cannulated via modified Seldinger technique with placement of 6-Greenlandic sheath. All catheters exchanged through this sheath. FINDINGS: Left ventriculogram was performed in standard 30-degree DODD view reveals global hypokinesis throughout all segments. Overall ejection fraction is 30%. SELECTIVE CORONARY ANGIOGRAPHY: 1. Left main is heavily calcified at least 70% stenosis. 2. The left anterior descending has heavy calcification throughout multiple areas of 70+ percent stenosis. 3. The left circumflex is severely diffusely diseased, multiple areas greater than 70% stenosis, very heavily calcified vessel. 4. The right coronary artery is very heavily calcified, 90% stenosis throughout the midvessel. Distal vessel is very severely diffusely diseased. 5. Abdominal aortography was performed. The catheter was pulled down for aortofemoral runoff. Abdominal aortography reveals heavy calcification of the abdominal aorta, moderate diffuse disease, but no discrete flow-limiting stenosis. RIGHT LEG: A. Iliac: The common internal and external iliacs are heavily calcified, tortuous, but not stenosed. B. Femoral system: The common and deep femoral are widely patent. Superficial femoral has multiple areas of heavy calcification greater than 70% stenosis. C. Popliteal and infrapopliteal vessels: The popliteal does appear to be patent. Infrapopliteal vessels are severely diffusely diseased. It appeared to be only patent in the very proximal portion of these vessels. LEFT LEG: A. Iliac: The common internal and external iliacs are heavily calcified, tortuous, but not stenosed. B. Femoral system: The common and deep femoral are widely patent. Superficial femoral has multiple areas of heavy calcification greater than 70% stenosis. C. Popliteal and infrapopliteal vessels: The popliteal does appear to be patent. Infrapopliteal vessels are severely diffusely diseased. It appeared to OPERATIVE REPORT [id number] MARK HAIRSTON RAY be only patent in the very proximal portion of these vessels. OVERALL IMPRESSION: 1. Severe diffuse disease of both legs bilaterally. 2. Severe diffuse disease all coronaries, heavy calcification of all vessels as well, not amenable to transcatheter revascularization. TRANSINT:[id number] Voice Confirmation ID: [id number] DOCUMENT ID: [id number] SYDNIE JARAMILLO MD at 1546 CC: [id number] DICTATION DATE: 09/01/17 1103 ROOFER APPRENTICE: 09/01/17 1457 DIS IN 09/02/17 [address] [place] [address]
--- NOTE | 2017-09-15 15:46 | EC ---
PATIENT:MARK HAIRSTON DATE OF SERVICE: 08/31/17 SEX: M MEDICAL RECORD: [id number] DATE OF : 54 LOCATION:D.M2 D.212 AGE OF PATIENT: 67 ADMISSION DATE: 08/31/17 REFERRING PHYSICIAN: INTERPRETING PHYSICIAN: SYDNIE QUIROS MD ECHOCARDIOGRAM REPORT ECHO CHARGES 4 ECHO COMPLETE CLINICAL DIAGNOSIS: CHF/SOB ECHOCARDIOGRAPHIC MEASUREMENTS (adult normal given) AC root (d.<3.7cm) 4.1 cm LV Septum d (<1.2 cm> 3.4 cm Valve Excursion 1.6 cm LV Septum (systole) 3.6 cm Left Atria (s.<4.0cm> 4.2 cm LVPW d(<1.2cm) 2.9 cm RV (d.<2.3cm) 3.1 cm LVPW (sytole) 3.0 cm LV diastole(<5.6CM) 4.2 cm MV E-F(>70mm/sec) cm LV systole 3.4 cm LVOT Diameter 1.3 cm MV exc.(>10mm) cm Est.ejection fraction (50-75%) % Pericardial Effusion Y DOPPLER: LVIT cm/sec A 96.0 cm/sec E 114 cm/sec LA cm/sec RVSP 38 mmHg LVOT 62 cm/sec AOP1/2T 579 m/s Asc. Ao 149 cm/sec RVOT 92 cm/sec RA cm/sec PA 103 cm/sec AV Gradient Peak 8.89 mmHg AV Mean 5.06 mmHg AV Area 1.2 cm MV Gradient Peak 4.89 mmHg MV Mean 1.99 mmHg MV Area cm COMMENTS: Contract Paralegal: Mindy HOFFMAN Dip Dyer: 1 Dr. Quiros TAPE# PACS DATE OF SERVICE: 08/31/2017 FINDINGS: 1. Left ventricular chamber size is within normal limits. Left ventricular systolic function is moderately reduced. Overall ejection fraction in the 35% range. 2. Concentric left ventricular hypertrophy is present, concentric, but no evidence of outflow tract hypertrophy, but there is reversal of mitral inflow pattern suggestive of diastolic dysfunction from this degree of left ventricular hypertrophy. ECHOCARDIOGRAM REPORT [id number] MARK HAIRSTON 3. Left atrium is enlarged at 4.2 cm. Right atrium and right ventricular chamber sizes are as well mildly dilated. 4. Valvular structures have normal structure and motion. 5. Doppler interrogation reveals mild aortic insufficiency, mild mitral regurgitation, mild tricuspid regurgitation, no other valvular insufficiency or stenosis. Pulmonary systolic pressure is estimated at 38 mmHg. 6. No evidence of pericardial effusion or left ventricular thrombus. TRANSINT:[id number] Voice Confirmation ID: [id number] DOCUMENT ID: [id number] SYDNIE QUIROS MD at 1546 CC: [id number] DICTATION DATE: 08/31/171216 TEA TREE FARMER: 08/31/17 1429 DIS IN 09/02/17 [facility] [address] [place] [address]
== END 2017-09-02 21:54 | DRG 282 ==
LOC: D.ER 07:58 → D.M2 09:46
PROVIDERS: Emergency Medicine; Internal Medicine Interventional Cardiology; ADMIT Family Medicine
PROC: B2151ZZ Fluoroscopy of Left Heart using Low Osmolar Contrast (ICD-10-PCS; 2017-09-01)
PROC: 4A023N7 Measurement of Cardiac Sampling and Pressure, Left Heart, Percutaneous Approach (ICD-10-PCS; 2017-09-01)
PROC: B2111ZZ Fluoroscopy of Multiple Coronary Arteries using Low Osmolar Contrast (ICD-10-PCS; principal; 2017-09-01 11:15)
DX: I21.4 Non-ST elevation (NSTEMI) myocardial infarction (principal); I25.119 Atherosclerotic heart disease of native coronary artery with unspecified angina pectoris; I73.9 Peripheral vascular disease, unspecified; I10 Essential (primary) hypertension; R94.31 Abnormal electrocardiogram [ECG] [EKG]

== ENCOUNTER 2017-09-02 17:44 | Inpatient (IN) | payer MEDICARE ==
[~2017-09-02] VITALS: Ht 175.3 cm; Wt 79.8 kg
--- NOTE | ~2017-09-02 | DS ---
PATIENT:MARK HAIRSTON :54 MEDICAL RECORD: [id number] DISCHARGE SUMMARY ADMISSION DATE: 09/02/17 DISCHARGE DATE: 09/21/17 This is a discharge dated 09/21/2017 from inpatient rehab. PRIMARY DIAGNOSIS: Decreased functional ability and ability to provide activities of daily living status post CVA. SECONDARY DIAGNOSES: 1. Dysphagia. 2. Dysphasia. 3. Hyperlipidemia. 4. Hypertension. 5. Peripheral vascular disease. 6. Coronary artery disease. 7. Congestive heart failure. 8. Atrial fibrillation. 9. Left ventricular hypertrophy. 10. Cardiomyopathy with an EF of 35%. 11. Influenza A. HOSPITAL COURSE: Full H&P is located elsewhere on the chart on this 67-year-old male who was admitted to inpatient rehab for physical therapy and occupational therapy to improve gait, transfer skills, bed mobility, and activities of daily living to a modified independent level. He was evaluated by PT and OT and their plans of care were followed. He was seen by speech therapy for management of dysphagia and dysphasia. He required retirement care for observation and assessment and medication administration. Electrolytes were managed by protocol. He remained on appropriate home medications. He was tested for influenza and the flu A was positive. He was treated with Tamiflu. He was cooperative with therapies, progressing towards goals. Case management was involved for discharge planning. He was considered stable for discharge on 09/21/2017. DISCHARGE MEDICATIONS: As per discharge medication reconciliation. DISCHARGE DISPOSITION: The patient is discharged to [facility] to a retirement bed. He will continue his current diet and level of activity. He will follow up with primary care and specialists as directed. At least 30 minutes was spent in this discharge activity. TRANSINT:[id number] Voice Confirmation ID: [id number] DOCUMENT ID: [id number] Dictated By: LOGAN VILLAGOMEZ I have interviewed/examined the above patient and agree with these documented findings. DISCHARGE SUMMARY REPORT [id number] MARK HAIRSTON HERBIE SCHMIDT MD at 1802 at 1437 CC: [id number] DICTATION DATE: 10/24/17 1543 STEEL BOX TOE INSERTER: 10/25/17 0209 DIS IN 09/21/17 [address] [place] [address]
--- NOTE | ~2017-09-02 | RHP ---
PATIENT: MARK HAIRSTON MEDICAL RECORD: [id number] ACCOUNT: [id number] LOCATION:[facility]1118 : [birth year] ADMISSION DATE: 09/02/17 REHABILITATION HISTORY AND PHYSICAL EXAMINATION POST ADMISSION PHYSICIAN EXAMINATION POST-ADMISSION PHYSICAL EXAMINATION AND HISTORY AND PHYSICAL DATE OF ADMISSION: 09/02/2017 ADMITTING DIAGNOSIS: CVA. HISTORY OF PRESENT ILLNESS: The patient is a 67-year-old gentleman who presents to the inpatient rehab with a working diagnosis of CVA. The patient had a right basal ganglia and pontine infarct. 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 He has a past medical history of hypertension. He presented to the Emergency Room with shortness of breath. He had some slurred speech and is a poor historian with no family present. He reports he just came for a checkup. He is not complaining of any overt chest pain or chest discomfort. He was found to have an elevated troponin. EKG showed left ventricular hypertrophy and lateral changes. Blood pressure was 189/120, pulse of 112. CT of his head showed a right basal ganglia and pontine lacunar infarct and probable chronic left cerebellar infarct. He was admitted from the Emergency Room with cardiology consult on 09/01/2017 and went to the flue dust laborer for angiogram and the following findings were noted. He had severe diffuse disease in both legs bilaterally, severe diffuse disease in all coronaries with heavy calcifications of all the vessels as well, not amenable to transcatheter revascularization. Previously was independent, lives with some friends here in town. Currently, he is mildly confused, says he does not know where he is. He is markedly max assist for ADLs and mobility. He has an ataxic gait, slurred speech, chokes easily when he eats or drinks. Bedside swallow eval showed no overt signs of aspiration, but recommended speech therapy follow him throughout his stay for eating safety of swallowing, dietary tolerance and follow up on this. His family was concerned, he will no longer be able to care for himself and plan to get a POA, so they can have him placed in an assisted living facility or long-term care facility. Comorbidities include hypertension, non-Q-wave OK, diffuse disease to his coronary arteries, coronary artery disease, chest pain, dyspnea, dyspnea on exertion, abnormal EKG, elevated troponin, ataxic gait, CHF, hypertension, AFib, mild mitral regurg, mild tricuspid regurg, left ventricular hypertrophy, he has got an EF of 35%, peripheral vascular disease. PAST MEDICAL HISTORY: Significant for CVA. He got a history of dentures, hypertension. PAST SURGICAL HISTORY: None. ALLERGIES: No known drug allergies. MEDICATIONS: Current medications include Detrol 4 mg daily, Pravachol 20 mg daily, metoprolol 50 mg b.i.d., furosemide 20 mg b.i.d., Plavix 75 mg daily, aspirin 81 mg daily, and polyethylene glycol 17 g in 8 ounces of water daily. HABITS: No current alcohol or tobacco use. HISTORY AND PHYSICAL [id number] MARK HAIRSTON FAMILY HISTORY: Noncontributory. SOCIAL HISTORY: The patient will have to be placed from here to some type facility. REVIEW OF SYSTEMS: GENERAL: He does complain of weakness and fatigue. HEENT: He denies cold, cough, or congestion. CARDIOVASCULAR: Denies any chest pain. PHYSICAL EXAMINATION: VITAL SIGNS: Stable, afebrile. GENERAL: A much older than stated age gentleman in no acute distress, alert upon exam. HEENT: Normocephalic and atraumatic. Mucosa moist. NECK: Supple. No lymphadenopathy. LUNGS: Coarse breath sounds. CARDIOVASCULAR: Irregular rate and rhythm. ABDOMEN: Benign. EXTREMITIES: No clubbing, cyanosis or edema. NEUROLOGIC: He is somewhat confused. LABORATORY DATA: His white count is 6.3, H&H of 14 and 41, and platelet count was noted to be 183. Sodium is 138, potassium 3.6, BUN and creatinine of 25 and 1.5 and blood sugar was noted to be 86. ASSESSMENT: This is a 67-year-old gentleman who is admitted to the rehab with a working diagnosis of cerebrovascular accident, complicated by end-stage coronary artery disease. The patient has potential to make improvement. We instituted the following multidisciplinary therapies including to, but not limited to physical, occupational, respiratory, speech, nutritional services, prosthetics and orthotics. Given his complex condition and risk for more complications, rehabilitation services cannot be provided at a low level of care such as a intermediate facility. PLAN: 1. Admit to [facility] rehab for intensive inpatient therapy to include the following disciplines: A. Physical therapy to improve gait, all transfer skills and bed mobility to a modified independent level. B. Occupational therapy to improve activities of daily living to a modified independent level. C. Case management to assist with discharge planning and placement options. D. Nutrition to assist with nutritional needs. E. Rehabilitation nursing to assist in monitoring the patient's underlying medical conditions and to assist with any type of bowel or bladder management. 2. The patient's current medications and medical care will be continued. 3. The patient will be placed on standard fall precautions. 4. The patient's estimated length of stay is approximately 7-10 days. 5. Discuss this patient during care team staff meeting this week. We will help his family with the POA in any way, shape, or form we can and work on placement from here. TRANSINT:[id number] Voice Confirmation ID: [id number] DOCUMENT ID: [id number] HISTORY AND PHYSICAL [id number] MARK HAIRSTON notes whether there has been none or any medical/functional change since admission: - No change since pre-admission screen. ILA attests patient continues to be appropriate for IRF: - Continues to be appropriate. HERBIE QUINTANA MD at 1313 CC: [id number] DICTATION DATE: 09/03/17 0858 AIR HAMMER STRIPPER: 09/03/17 1114 ADM IN [id number] [place] [address]
[~2017-09-02 17:44] MED LIST: BAYER CHEWABLE81 MG PO; COZAAR50 MG PO; DETROL LA4 MG PO; LASIX20 MG PO; METOPROLOL TART50 MG PO; PLAVIX75 MG PO; PRAVACHOL20 MG PO
[2017-09-02 23:15] VITALS: BP 173/97; BMI 26.0
[2017-09-03 07:35] LABS: BASOPHILS 0.2 % (0-2); EOSINOPHILS 1.8 % (0-7); HEMATOCRIT 41.1 % (42.0-54.0); HEMOGLOBIN 14.3 g/dL (13.5-17.5); IMMATURE GRANULOCYTES 0.3 % (0-5); LYMPHOCYTES 24.6 % (15-50); MCHC 34.8 g/dL (31.0-37.0); MEAN PLATELET VOLUME 10.7 fL (7.4-10.4); MONOCYTES 6.9 % (2-11); NEUTROPHILS 66.2 % (40-80); PLATELET COUNT 183 10x3/uL (130-400); RBC 4.76 10x6/uL (4.20-6.10); RDW 13.7 % (11.5-14.5); WBC 6.3 10x3/uL (4.8-10.8)
[2017-09-03 07:49] LABS: MCV 86.3 fL (80.0-100.0)
[2017-09-03 07:51] LABS: ANION GAP 8.5 mmol/L (8-16); CALCIUM 8.7 mg/dL (8.5-10.1); CARBON DIOXIDE 30.1 mmol/L (21.0-32.0); CREATININE - SERUM 1.5 mg/dL (0.6-1.3); POTASSIUM - SERUM 3.6 mmol/L (3.5-5.1)
[2017-09-03 10:54] VITALS: BP 159/98
[2017-09-03 12:21] VITALS: Ht 175.3 cm; Wt 79.8 kg
[2017-09-03 22:18] VITALS: BP 151/90
[2017-09-04 08:00] VITALS: BP 169/123
[2017-09-04 14:11] VITALS: BP 148/99
[2017-09-04 20:00] VITALS: BP 150/109
[2017-09-05 08:44] VITALS: BP 159/97
[2017-09-05 19:00] VITALS: BP 116/65; BP 148/94
[2017-09-06 07:12] LABS: BASOPHILS 0.1 % (0-2); EOSINOPHILS 1.6 % (0-7); HEMATOCRIT 40.9 % (42.0-54.0); HEMOGLOBIN 13.8 g/dL (13.5-17.5); IMMATURE GRANULOCYTES 0.3 % (0-5); LYMPHOCYTES 24.2 % (15-50); MCH 29.5 pg (26.0-34.0); MCHC 33.7 g/dL (31.0-37.0); MCV 87.4 fL (80.0-100.0); MEAN PLATELET VOLUME 10.9 fL (7.4-10.4); MONOCYTES 7.4 % (2-11); NEUTROPHILS 66.4 % (40-80); PLATELET COUNT 182 10x3/uL (130-400); RBC 4.68 10x6/uL (4.20-6.10); RDW 13.7 % (11.5-14.5); WBC 7.7 10x3/uL (4.8-10.8)
[2017-09-06 07:24] LABS: ANION GAP 11.4 mmol/L (8-16); CALCIUM 8.9 mg/dL (8.5-10.1); CARBON DIOXIDE 26.9 mmol/L (21.0-32.0); CREATININE - SERUM 1.3 mg/dL (0.6-1.3); POTASSIUM - SERUM 4.3 mmol/L (3.5-5.1)
[2017-09-06 08:53] VITALS: BP 151/94
[2017-09-06 23:32] VITALS: BP 144/89
[2017-09-07 08:01] VITALS: BP 123/96
[2017-09-07 22:17] VITALS: BP 141/79
[2017-09-08 07:59] VITALS: BP 176/115
[2017-09-08 12:00] VITALS: BP 126/89
[2017-09-09 08:13] VITALS: BP 135/81
[2017-09-09 22:55] VITALS: BP 142/90
[2017-09-10 08:38] VITALS: BP 146/101
[2017-09-10 22:50] VITALS: BP 141/88
[2017-09-11 08:33] VITALS: BP 168/105
[2017-09-11 19:31] VITALS: BP 174/96
[2017-09-12 08:43] VITALS: BP 149/107
[2017-09-12 20:00] VITALS: BP 117/56
[2017-09-13 07:22] LABS: BASOPHILS 0.2 % (0-2); EOSINOPHILS 1.7 % (0-7); HEMATOCRIT 38.9 % (42.0-54.0); HEMOGLOBIN 13.3 g/dL (13.5-17.5); IMMATURE GRANULOCYTES 0.4 % (0-5); LYMPHOCYTES 19.9 % (15-50); MCH 29.9 pg (26.0-34.0); MCHC 34.2 g/dL (31.0-37.0); MCV 87.4 fL (80.0-100.0); MEAN PLATELET VOLUME 10.4 fL (7.4-10.4); MONOCYTES 10.8 % (2-11); PLATELET COUNT 180 10x3/uL (130-400); RBC 4.45 10x6/uL (4.20-6.10); RDW 13.3 % (11.5-14.5); WBC 5.4 10x3/uL (4.8-10.8)
[2017-09-13 07:41] LABS: ANION GAP 9.5 mmol/L (8-16); CALCIUM 8.7 mg/dL (8.5-10.1); CARBON DIOXIDE 29.9 mmol/L (21.0-32.0); CREATININE - SERUM 1.2 mg/dL (0.6-1.3); POTASSIUM - SERUM 4.4 mmol/L (3.5-5.1)
[2017-09-13 09:55] VITALS: BP 162/104
[2017-09-13 21:42] VITALS: BP 180/109
[2017-09-14 10:30] VITALS: BP 154/99
[2017-09-14 19:40] VITALS: BP 147/95
[2017-09-15] MEDS ORDERED: NORVASC2.5 MG PO (09:03)
[2017-09-15 19:00] VITALS: BP 161/10
[2017-09-16 08:50] VITALS: BP 159/96
[2017-09-16 19:11] VITALS: BP 153/99
[2017-09-17 18:49] VITALS: BP 124/69
[2017-09-17 23:06] VITALS: BP 159/104
[2017-09-18 08:31] VITALS: BP 142/96
[2017-09-18 19:33] VITALS: BP 163/102
[2017-09-19 08:10] VITALS: BP 170/101
[2017-09-19 19:50] VITALS: BP 149/102
[2017-09-20 18:18] VITALS: BP 145/93
[2017-09-20 19:43] VITALS: BP 170/98
[2017-09-21 08:13] LABS: BASOPHILS 0.2 % (0-2); HEMATOCRIT 41.3 % (42.0-54.0); HEMOGLOBIN 14.3 g/dL (13.5-17.5); LYMPHOCYTES 30.7 % (15-50); MCH 29.4 pg (26.0-34.0); MCHC 34.6 g/dL (31.0-37.0); MCV 84.8 fL (80.0-100.0); MEAN PLATELET VOLUME 10.3 fL (7.4-10.4); MONOCYTES 6.8 % (2-11); NEUTROPHILS 61.3 % (40-80); PLATELET COUNT 161 10x3/uL (130-400); RBC 4.87 10x6/uL (4.20-6.10); RDW 12.9 % (11.5-14.5); WBC 4.9 10x3/uL (4.8-10.8)
[2017-09-21 08:39] VITALS: BP 163/105
[2017-09-21 10:08] LABS: ANION GAP 11.1 mmol/L (8-16); CALCIUM 9.7 mg/dL (8.5-10.1); CARBON DIOXIDE 32.6 mmol/L (21.0-32.0); CREATININE - SERUM 1.1 mg/dL (0.6-1.3); POTASSIUM - SERUM 3.7 mmol/L (3.5-5.1)
== END 2017-09-21 16:00 | DRG 64 ==
LOC: D.REHAB 17:44
PROVIDERS: Emergency Medicine
DX: I63.9 Cerebral infarction, unspecified (principal); I21.4 Non-ST elevation (NSTEMI) myocardial infarction; I25.10 Atherosclerotic heart disease of native coronary artery without angina pectoris; R26.0 Ataxic gait; I11.0 Hypertensive heart disease with heart failure; R47.1 Dysarthria and anarthria; I50.9 Heart failure, unspecified; I48.91 Unspecified atrial fibrillation; I34.0 Nonrheumatic mitral (valve) insufficiency; I07.1 Rheumatic tricuspid insufficiency; I73.9 Peripheral vascular disease, unspecified